=== PATIENT | female | born 1990 | race African-American/Black ===

== ENCOUNTER 2019-03-10 12:36 | Emergency (ER) | payer OTHER ==
[~2019-03-10] VITALS: Ht 165.1 cm; Wt 56.2 kg
[~2019-03-10 12:36] MED LIST: DOXYCYCLINE 10100 MG PO; MEDROXYPROGESTERONE
[2019-03-10 12:37] VITALS: BP 109/78
[2019-03-10] MEDS ORDERED: NORCO 5-325 TA1 EAC1 PO (13:33)
[2019-03-10] MEDS ORDERED: PENICILLIN V P500 MG PO (13:33)
== END 2019-03-10 13:40 | disposition home or self-care (01) ==
LOC: ER 12:36
DX: K08.89 Other specified disorders of teeth and supporting structures (principal); R51 Headache; Z98.890 Other specified postprocedural states